=== PATIENT | female | born 1985 | race Two or more races ===

== ENCOUNTER 2024-02-16 14:48 | Emergency (ER) | payer MEDICAID, OTHER ==
[~2024-02-16] VITALS: Ht 160 cm; Wt 60.0 kg
[2024-02-16] MEDS: SODIUM CHLORIDE 0.9% 1,000 ML IV ONE (15:15)
[2024-02-16] MEDS: LORazepam 2MG/ML-1ML VIAL IV ONE (15:15)
[2024-02-16] MEDS ORDERED: levETIRAcetam 500 MG/5ML INJ IV ONE (15:18)
[2024-02-16] MEDS: levETIRAcetam 1000 mg/100ml 100 ML IV ONE (15:22)
[2024-02-16 15:28] VITALS: PULSE 100
[2024-02-16 15:33] LABS: Basophils # (auto) 0 10 ^3/uL (0-0.2); Basophils % (auto) 0.2 % (0.0-2.0); Eosinophils # (auto) 0 10 ^3/uL (0-0.8); Eosinophils % (auto) 0.1 % (0.0-7.0); Hematocrit 41.2 % (36.0-46.0); Lymphocytes # (auto) 1.7 10 ^3/uL (0.4-5.4); Lymphocytes % (auto) 20.4 % (10.0-50.0); Mean Corpuscular Hemoglobin 31.2 pg (28.0-32.0); Mean Corpuscular Volume 91.7 fL (80.0-100.0); Monocytes # (auto) 0.2 10 ^3/uL (0-1.3); Monocytes % (auto) 2.8 % (0.0-12.0); Neutrophils # (auto) 6.2 10 ^3/uL (1.6-8.6); Neutrophils % (auto) 76.5 % (37.0-80.0); Nucleated Red Blood Cells % 0.1 %; Red Cell Distribution Width 13.3 % (11.8-14.3); White Blood Cell 8.1 10^3/uL (4.4-10.8)
[2024-02-16 15:49] LABS: Alanine Aminotransferase 29 U/L (7-40); Alkaline Phosphatase 100 U/L (46-116); Anion Gap 6 (5-15); Blood Alcohol < 3.0 mg/dL (<10); Calcium 8.7 mg/dL (8.5-10.1); Carbon Dioxide 27 mmol/L (20-30); Chloride 105 mmol/L (98-107); Glucose 111 mg/dL (74-106); Potassium 3.6 mmol/L (3.5-5.1); Sodium 138 mmol/L (136-145)
[2024-02-16 15:50] LABS: Albumin 4.1 g/dL (3.2-4.8); Aspartate Aminotransferase 31 U/L (13-40); BUN/Creatinine Ratio 11.3 (10.0-20.0); Bilirubin, Total 0.5 mg/dL (0.2-1.0); Blood Urea Nitrogen 7 mg/dL (9-23); INR 1.04 (0.9-1.15); Partial Thromboplastin Time 28.2 SEC (24.5-34.5); Prothrombin Time 10.9 sec (9.3-11.8); Total Protein 6.8 g/dL (5.7-8.2)
[2024-02-16 16:05] LABS: Magnesium 1.9 mg/dL (1.6-2.6)
[2024-02-16 16:29] LABS: Urine Bacteria None Seen /hpf (None Seen)
[2024-02-16 16:58] LABS: Amphetamine Screen, Urine Neg (NEGATIVE); Benzodiazephine Screen, Urine Neg (NEGATIVE)
[2024-02-16 16:59] LABS: Barbiturate Scree,Urine Neg (NEGATIVE); Cannabinoid Screen, Urine Neg (NEGATIVE); Cocaine Screen, Urine Neg (NEGATIVE); Opiate Scree,Urine Neg (NEGATIVE); Phencyclidine Screen, Urine Neg (NEGATIVE); Urine Blood Negative /uL (Negative); Urine Clarity Clear (Clear); Urine Color Colorless (Yellow); Urine Protein, UAD Negative (Negative); Urine Specific Gravity 1.012 (1.001-1.035); Urine Urobilinogen Normal (Negative); Urine WBC 2 /hpf (0 - 5); Urine pH 5.5 (5.0-9.0)
[2024-02-16] MEDS: ASPirin-EC 325mg tab PO ONE (17:50)
[2024-02-16] MEDS: ENOXAPARIN SOD 60 MG/0.6 ML SYRINGE SC ONE (17:51)
[2024-02-16 18:20] VITALS: PULSE 91; RESP 13; O2SAT 99
[2024-02-16 20:25] VITALS: BP 108/55; PULSE 89; RESP 17; TEMP 97.9; O2SAT 98
[2024-02-16] MEDS ORDERED: ONDANSETRON HCL 4 MG/2 ML VIAL IV PRN (20:45)
[2024-02-16] MEDS ORDERED: ACETAMINOPHEN 325 MG TAB PO PRN (20:45)
[2024-02-16] MEDS ORDERED: LORazepam 2MG/ML-1ML VIAL IV PRN (20:45)
[2024-02-16] MEDS ORDERED: MORPHINE SULFATE INJ 2 MG/ml SYRG IV PRN (20:45)
[2024-02-16] MEDS ORDERED: NITROGLYCERIN 0.4 MG SL TAB SL PRN (20:45)
[2024-02-16] MEDS ORDERED: ATORVASTATIN 20 MG TAB PO SCH (22:00)
[2024-02-17] MEDS ORDERED: levETIRAcetam 500 mg/100ml 100 ML IV SCH (10:00)
[2024-02-17] MEDS ORDERED: ASPirin 81 mg TAB PO SCH (10:00)
== END 2024-02-16 20:49 | disposition left against medical advice (07) ==
LOC: EDBD 14:48 → ER 14:48 → TELE 20:49 → ER 20:49 → UNDOADMIN 20:49
DX: I21.4 Non-ST elevation (NSTEMI) myocardial infarction (principal); G40.909 Epilepsy, unspecified, not intractable, without status epilepticus; R10.2 Pelvic and perineal pain
CPT/HCPCS: 36415; 70450; 71045; 80053; 80307; 80320; 81001; 81025; 83735; 84484; 84702; 85025; 85610; 85730; 96365; 96372; 96375; 99291; J1650; J1953; J2060; J7030